=== PATIENT | female | born 1980 | race Caucasian/White ===

== ENCOUNTER 2017-01-13 20:07 | Emergency (ER) | payer BC ==
[2017-01-13] MEDS ORDERED: Ketorolac 30 MG/ML SDV IVPUSH ONE (20:26)
[2017-01-13] MEDS ORDERED: diphenhydrAMINE 50 MG/ML SDV IVPUSH ONE (20:27)
[2017-01-13] MEDS ORDERED: Sodium Chloride 0.9% 1,000 ML IV SCH (20:30)
[2017-01-13] MEDS ORDERED: LORazepam 2 MG/ML MDV IVPUSH ONE (21:15)
[2017-01-13] MEDS ORDERED: Dexamethasone 4 MG/ML SDV IVPUSH ONE (21:15)
[2017-01-13] MEDS ORDERED: Ondansetron 4 MG/2 ML SDV IVPUSH ONE (21:15)
[2017-01-13 22:31] VITALS: BP 130/73
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
== END 2017-01-13 22:47 | disposition home or self-care (01) ==
LOC: JP.ED 20:07
DX: G43.909 Migraine, unspecified, not intractable, without status migrainosus (principal); F41.9 Anxiety disorder, unspecified; E03.9 Hypothyroidism, unspecified; Z87.891 Personal history of nicotine dependence
CPT/HCPCS: 36415; 80053; 81001; 82150; 83690; 83735; 84484; 85025; 93005; 96361; 96374; 96375; 99284; G0480; J1100; J1200; J1885; J2060; J2405; J7040